=== PATIENT | female | born 2000 | race Caucasian/White ===

== ENCOUNTER 2021-03-15 19:29 | Emergency (ER) | payer OTHER, SELFPAY ==
--- NOTE | 2021-03-15 19:33 | ED.GENADULT ---
HPI - General Adult General Chief complaint: Anxiety Stated complaint: pos insect sting/nausea/dizzy Time Seen by Provider: 03/15/21 19:33 Source: patient and RN notes reviewed Mode of arrival: ambulatory Limitations: no limitations History of Present Illness HPI narrative: 20-year-old female presents to the [facility] with swelling redness to the right fifth finger after being stung yesterday. Patient also states that she has been weaning off her Effexor and states this morning she did not take her dose, had a nauseous feeling this afternoon along with a floating feeling . Denies chest pain or shortness of breath. No vomiting. Has had intermittent abdominal discomfort. Related Data Home Medications Medication Instructions Recorded Confirmed Effexor 03/15/21 Allergies Allergy/AdvReac Type Severity Reaction Status Date / Time promethazine [From Phenergan] Allergy Unknown Verified 03/15/21 19:43 Review of Systems Review of Systems: All systems reviewed & are unremarkable except as noted in HPI and below Constitutional: Constitutional: Reports no additional constitutional complaints, Denies chills and Denies fever(s) Eyes: Eyes: Reports no additional eye complaints ENT: Reports system reviewed and no additional complaints, except as documented Cardiovascular: Cardiovascular: Reports no additional cardiovascular complaints and Denies chest pain Respiratory: Respiratory: Reports no additional respiratory complaints, Denies cough and Denies dyspnea Musculoskeletal: Musculoskeletal: Reports no additional musculoskeletal complaints Integumentary/Breasts: Skin/Breast: Reports as per HPI and Reports erythema (Right fifth finger along with swelling and increased warmth) Neurologic: Reports system reviewed and no additional complaints, except as documented Psychiatric: Psychiatric: Reports no additional psychiatric complaints Allergic/Immunologic: Allergic/Immunologic: Reports as per HPI, Denies lip swelling, Denies throat swelling, Denies tongue swelling and Denies wheezing [facility] Past Medical History Medical History (Updated 03/15/21 @ 19:52 by Mary Love) Anxiety Surgical History Surgical History (Updated 03/15/21 @ 19:52 by Mary Love) No significant past surgical history Social History Social History (Updated 03/15/21 @ 19:52 by Mary Love) Living arrangements: with friend(s) Occupation/Education: student Gender identity (if verbalized by the patient): Female Comments At the time of my signature, I reviewed and agree with the nursing past medical, surgical, social, and family history. There is no relevant family history pertinent to the patient complaint. Exam Const: General: healthy appearing, no acute distress and alert Nutritional Appearance: well nourished Orientation/consciousness: patient oriented x3 Limitations: no limitations HENMT: Head: normal to inspection Eyes: Pupils: Equal, round and reactive pupils present Neck: Neck: normal visual inspection, no lymphadenopathy and no meningeal signs Chest: Chest palpation & inspection: normal inspection of the chest Resp: Effort & Inspection: normal respiratory effort and no use of accessory muscles Auscultation: clear to auscultation bilaterally and rales Cardio: Rate: regular rate Rhythm: regular rhythm GI: GI Palp: No Tenderness to palpation present (GI) Back/Spine/Pelvis: Back: no CVA tenderness Skin: Other: Redness, swelling noted with decreased range of motion due to swelling of the fifth finger. Sensation intact distal and. Capillary refill under 2 seconds. Neuro: General: patient oriented x3, moves all extremities, no meningeal signs and no focal motor deficits Speech: normal speech Gait exam (Neuro): Normal gait present Extrem: General: normal to inspection Psych: Appearance: grossly normal and well kempt Mental Status: mental status grossly normal Affect: Anxious affect present Thought content
[2021-03-15 19:41] VITALS: BP 143/81; PULSE 75; RESP 20; TEMP 36.6; O2SAT 100
[2021-03-15 19:44] VITALS: BP 143/81; PULSE 75; RESP 20; TEMP 36.6; O2SAT 100
== END 2021-03-15 19:54 | disposition home or self-care (01) ==
PROVIDERS: Emergency Provider Nurse Practitioner
DX: T63.441A Toxic effect of venom of bees, accidental (unintentional), initial encounter (principal); F41.9 Anxiety disorder, unspecified
CPT/HCPCS: 99213; G0463